=== PATIENT | male | born 1970 | race American Indian/Alaskan Native ===

== ENCOUNTER 2017-07-07 09:13 | Emergency (ER) | payer SELFPAY ==
[2017-07-07] MEDS ORDERED: Oxycodone/Acetaminophen 5/325 mg Tab PO STA (10:28)
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
[2017-07-07 12:42] VITALS: BP 122/86; PULSE 78; RESP 16; TEMP 98.1
--- NOTE | 2017-07-07 14:43 | RAD ---
PROCEDURE: Radiographs of the Lumbar Spine. HISTORY: Lumbar/back Pain. No history of recent/ related trauma provided COMPARISON: No prior. FINDINGS: BONES: Normal alignment. No listhesis. No fracture. DISC SPACES: Unremarkable. OTHER FINDINGS: None. IMPRESSION: Unremarkable radiographs of the lumbar spine. Concordant results with the preliminary interpretation rendered by the emergency department physician procedure.
[2017-07-07 15:22] VITALS: O2SAT 95
== END 2017-07-07 12:05 | disposition home or self-care (01) ==
LOC: C.ER 09:13
DX: M54.5 Low back pain (principal)